=== PATIENT | female | born 1995 | race Caucasian/White ===

== ENCOUNTER 2017-11-24 11:15 | Emergency (ER) | payer SELFPAY ==
--- NOTE | 2017-11-24 13:47 | ER Document Report ---
ED Animal Bite - General Chief Complaint: Dog Bite Stated Complaint: DOG BITE/RIGHT HAND Time Seen by Provider: 11/24/17 13:40 Mode of Arrival: Ambulatory Information source: Patient TRAVEL OUTSIDE OF THE [place] IN LAST 30 DAYS: No - HPI Location of injury: RUE Severity of injury: Bitten Onset: Other - 3 DAYS AGO Where did incident occur: [facility] Quality of pain: Other - SORENESS Severity: Mild Context of attack: Animals fighting Summary of what happened: PATIENT TRIED TO BREAK UP FIGHT BETWEEN HER DOG AND ANOTHER, NOT SURE WHICH DOG BIT HER, MAYBE BOTH. Type of animal: Dog Appearance of animal: Appeared well Animal captured or known: Yes Animal control notified: Yes Animal control form completed: Yes - Related Data Allergies/Adverse Reactions: Sulfa (Sulfonamide Antibiotics) Allergy (Verified 11/24/17 11:17) Past Medical History - General Information source: Patient - Social History Smoking Status: Current Some Day Smoker Cigarette use (# per day): Yes Chew tobacco use (# tins/day): No Smoking Education Provided: No Frequency of alcohol use: Rare Drug Abuse: None Lives with: Spouse/Significant other Family History: Reviewed & Not Pertinent Patient has suicidal ideation: No Patient has homicidal ideation: No - Past Medical History Cardiac Medical History: Reports: None Pulmonary Medical History: Reports: None EENT Medical History: Reports: None Neurological Medical History: Reports: None Endocrine Medical History: Reports: None. Denies: Hx Diabetes Mellitus Type 1, Hx Diabetes Mellitus Type 2 Renal/ Medical History: Reports: None. Denies: Hx Peritoneal Dialysis Malignancy Medical History: Reports: None GI Medical History: Reports: None Musculoskeletal Medical History: Reports None Psychiatric Medical History: Reports: None Surgical Hx: Negative Review of Systems - Review of Systems Constitutional: No symptoms reported. denies: Chills, Fever EENT: No symptoms reported Cardiovascular: No symptoms reported Respiratory: No symptoms reported Gastrointestinal: No symptoms reported Musculoskeletal: No symptoms reported Skin: See HPI Neurological/Psychological: No symptoms reported Physical Exam - Vital signs Vitals: Pulse Resp BP Pulse Ox 67 16 112/60 99 11/24/17 11:23 11/24/17 11:23 11/24/17 11:23 11/24/17 11:23 Interpretation: Normal - General General appearance: Appears well, Alert In distress: None - HEENT Head: Normocephalic Eyes: Normal Conjunctiva: Normal Ears: Normal Nasal: Normal Mouth/Lips: Normal Mucous membranes: Normal - Respiratory Respiratory status: No respiratory distress Chest status: Nontender Breath sounds: Normal - Cardiovascular Rhythm: Regular - Abdominal Inspection: Normal Distension: No distension - Extremities General upper extremity: No: Normal inspection - R. HAND (SEE BELOW) General lower extremity: Normal inspection Hand: Laceration - 8 mm DORSUM OVER 2nd MC, TWO 5 mm LACSON PALMAR SURFACE. ONLY MILDLY TENDER, MINIMALLY RED & SWOLLEN. NO UNDUE PAIN W/ FINGER FLEXION/ EXTENSION Course - Vital Signs Vital signs: Temp Pulse Resp BP Pulse Ox 67 16 112/60 99 11/24/17 11:23 11/24/17 11:23 11/24/17 11:23 11/24/17 11:23 Discharge - Discharge Clinical Impression: Dog bite of hand Qualifiers: Encounter type: initial encounter Laterality: right Qualified Code(s): S61.451A - Open bite of right hand, initial encounter; W54.0XXA - Bitten by dog , initial encounter; W54.0XXA - Bitten by dog, initial encounter Condition: Stable Disposition: HOME, SELF-CARE Instructions: Tetanus Immunization Given ([facility]), Animal Bites ([facility]), Elevate the Injury ([facility]), Epsom Salt Soaks ([facility]), Augmentin ([facility]) Prescriptions: Amox Tr/Potassium Clavulanate [Augmentin 500-125 Tablet] 1 tab PO Q8 #20 tablet
[2017-11-24] MEDS ORDERED: DIPH/PERTUSS(ACELL)/TETANUS VAC/PF 0.5 ML SYR (>=10YO) IM ONE (14:11)
[2017-11-24 14:30] VITALS: BP 102/57
== END 2017-11-24 14:30 | disposition home or self-care (01) ==
LOC: ER 11:15
PROC: 3E0234Z Introduction of Serum, Toxoid and Vaccine into Muscle, Percutaneous Approach (ICD-10-PCS; principal; 2017-11-24)
DX: S61.451A Open bite of right hand, initial encounter (principal); W54.0XXA Bitten by dog, initial encounter; Y92.89 Other specified places as the place of occurrence of the external cause; F17.210 Nicotine dependence, cigarettes, uncomplicated; Z23 Encounter for immunization
CPT/HCPCS: 90471; 90715; 99283

== ENCOUNTER → 2018-05-27 | Outpatient (CLI) | payer MEDICAID ==
[2018-05-27 09:37] LABS: ALANINE AMINOTRANSFERASE 22 U/L (9-52); ALBUMIN 4.4 g/dL (3.5-5.0); ALKALINE PHOSPHATASE 55 U/L (38-126); ANION GAP 11 (5-19); ASPARTATE AMINO TRANSFERASE 23 U/L (14-36); BILIRUBIN,DIRECT 0.2 mg/dL (0.0-0.4); BILIRUBIN,TOTAL 0.8 mg/dL (0.2-1.3); BLOOD UREA NITROGEN 17 mg/dL (7-20); CALCIUM 9.8 mg/dL (8.4-10.2); CARBON DIOXIDE 26 mmol/L (22-30); CHLORIDE 103 mmol/L (98-107); GLUCOSE 89 mg/dL (75-110); POTASSIUM 4.4 mmol/L (3.6-5.0); SODIUM 140.3 mmol/L (137-145); TOTAL PROTEIN 7.6 g/dL (6.3-8.2); TRIGLYCERIDES 68 mg/dL (<150)
[2018-05-27 09:49] LABS: DIRECT LDL 86 mg/dL (<100)
== END ==
LOC: LAB 08:48
PROVIDERS: ATTEND Internal Medicine Cardiovascular Disease
DX: I95.1 Orthostatic hypotension (principal); R00.0 Tachycardia, unspecified; R07.9 Chest pain, unspecified
CPT/HCPCS: 36415; 80048; 80061; 80076; 83735; 84443

== ENCOUNTER → 2019-03-30 | Outpatient (CLI) | payer BC ==
[2019-03-30 13:43] LABS: A TYPE INFLUENZA AG NEGATIVE (NEGATIVE); B INFLUENZA AG NEGATIVE (NEGATIVE)
== END ==
LOC: OD 12:58
PROVIDERS: ATTEND Physician Assistant
DX: B34.9 Viral infection, unspecified (principal)
CPT/HCPCS: 87804

== ENCOUNTER 2020-02-28 21:48 | Emergency (ER) | payer BC, OTHER ==
--- NOTE | 2020-02-28 23:08 | ER Document Report ---
ED Medical Screen (RME) - General Chief Complaint: Medical Complaint Stated Complaint: SEVERE LOW BACK PAIN, BURNING WHEN PEEING Time Seen by Provider: 02/28/20 23:06 Primary Care Provider: EARL WITT PA-C [Primary Care Provider] - Follow up as needed Mode of Arrival: Ambulatory Information source: Patient Notes: 24-year-old female presents to ED for multiple complaints. She states since Thursday she has had back pain nausea fever and painful urination. She states her boyfriend was diagnosed with CORY on Thursday he was treated on Thursday with azithromycin and Rocephin. She states that she was treated yesterday with azithromycin and Rocephin and when she went to be seen they did get a urine at the time but they accidentally threw it away so she went back in today this evening when she developed painful urination and debris collected her urine but this was later in the day. She states she does smoke 1 cigarette a week and drinks a couple times a week. She does have a history of POTS and inappropriate sinus tachycardia. Patient is alert oriented respirations regular nonlabored at this time. She states she did have a fever up to 100.1 but nothing higher than that. She has not vomited. We will get blood urine and she will be seen by another provider. I have greeted and performed a rapid initial assessment of this patient. A comprehensive ED assessment and evaluation of the patient, analysis of test results and completion of medical decision making process will be conducted by an additional ED providers. TRAVEL OUTSIDE OF THE [place] IN LAST 30 DAYS: No - Related Data Allergies/Adverse Reactions: Sulfa (Sulfonamide Antibiotics) Allergy (Verified 11/24/17 11:17) Past Medical History Endocrine Medical History: Denies: Hx Diabetes Mellitus Type 1, Hx Diabetes Mellitus Type 2 Renal/ Medical History: Denies: Hx Peritoneal Dialysis Physical Exam - Vital signs Vitals: Temp Pulse Resp BP Pulse Ox 99.0 F 84 20 132/60 H 97 02/28/20 21:51 02/28/20 21:51 02/28/20 21:51 02/28/20 21:51 02/28/20 21:51 Course - Vital Signs Vital signs: Temp Pulse Resp BP Pulse Ox 99.0 F 84 20 132/60 H 97 02/28/20 21:51 02/28/20 21:51 02/28/20 21:51 02/28/20 21:51 02/28/20 21:51 Doctor's Discharge - Discharge Referrals: EARL WITT PAFayeC [Primary Care Provider] - Follow up as needed
[2020-02-28 23:28] LABS: ABSOLUTE MONOCYTES (AUTO) 0.6 10^3/uL (0.1-1.4); ABSOLUTE NEUT (AUTO) 2.4 10^3/uL (1.7-8.2); BASOPHILS % (AUTO) 0.3 % (0-2); EOSINOPHILS % (AUTO) 0.3 % (0-6); HEMATOCRIT 41.1 % (36.0-47.0); LYMPHOCYTES % (AUTO) 25.3 % (13-45); MEAN CORPUSCULAR HEMOGLOBIN 31.2 pg (27.0-33.4); MEAN CORPUSCULAR HGB CONC 34.2 g/dL (32.0-36.0); MEAN CORPUSCULAR VOLUME 91 fl (80-97); MONOCYTES % (AUTO) 14.9 % (3-13); PLATELET COUNT 221 10^3/uL (150-450); RED CELL DISTRIBUTION WIDTH 12.5 % (11.5-14.0); SEGMENTED NEUTROPHILS % (AUTO) 59.2 % (42-78); TOTAL CELLS COUNTED % (AUTO) 100 %; WHITE BLOOD COUNT 4.1 10^3/uL (4.0-10.5)
[2020-02-28 23:35] LABS: APPEARANCE,URINE SLIGHTLY-CLOUDY; BILIRUBIN,URINE NEGATIVE (NEGATIVE); COLOR,URINE YELLOW; GLUCOSE, URINE NEGATIVE (NEGATIVE); KETONES,URINE NEGATIVE (NEGATIVE); LEUKOCYTE ESTERASE,URINE MODERATE (NEGATIVE); NITRITE,URINE NEGATIVE (NEGATIVE); PROTEIN,URINE NEGATIVE (NEGATIVE); URINE SPECIFIC GRAVITY 1.011; UROBILINOGEN,URINE NEGATIVE mg/dL (<2.0)
[2020-02-29 00:35] LABS: ALBUMIN 4.7 g/dL (3.5-5.0); ALKALINE PHOSPHATASE 60 U/L (38-126); ANION GAP 9 (5-19); ASPARTATE AMINO TRANSFERASE 24 U/L (14-36); BILIRUBIN,DIRECT 0.1 mg/dL (0.0-0.4); BILIRUBIN,TOTAL 0.3 mg/dL (0.2-1.3); BLOOD UREA NITROGEN 5 mg/dL (7-20); CALCIUM 9.5 mg/dL (8.4-10.2); CARBON DIOXIDE 27 mmol/L (22-30); CHLORIDE 101 mmol/L (98-107); GLUCOSE 96 mg/dL (75-110); POTASSIUM 4.1 mmol/L (3.6-5.0); TOTAL PROTEIN 8.2 g/dL (6.3-8.2)
[2020-02-29] MEDS ORDERED: CEPHALEXIN 500 MG CAPSULE PO ONE (01:24)
--- NOTE | 2020-02-29 01:40 | ER Document Report ---
ED General - General Chief Complaint: Medical Complaint Stated Complaint: SEVERE LOW BACK PAIN, BURNING WHEN PEEING Time Seen by Provider: 02/28/20 23:06 Primary Care Provider: EARL WITT PA-C [Primary Care Provider] - Follow up as needed Mode of Arrival: Ambulatory Notes: 24 year old female is here with thoughts that she has a uti. Urinary frequency and urgency and dysuria. Also low back pain bilaterally - which she assures me is something she has had "almost my whole life." She has h/o distant tailbone fx and riding horses for years. Also has POTS. No dizziness or syncope recently. She was treated yesterday for sti with rocephin and zithromax due to boyfriend having cristina diagnosed in the last few days. No covid exposure that she is aware of. TRAVEL OUTSIDE OF THE [place] IN LAST 30 DAYS: No - HPI Onset/Duration: Gradual Severity: Moderate Pain Level: 2 Associated symptoms: None Exacerbated by: Denies - Related Data Allergies/Adverse Reactions: Sulfa (Sulfonamide Antibiotics) Allergy (Verified 11/24/17 11:17) Home Medications: zoloft, Past Medical History - General Information source: Patient - Social History Smoking Status: Current Some Day Smoker Family History: Reviewed & Not Pertinent Endocrine Medical History: Denies: Hx Diabetes Mellitus Type 1, Hx Diabetes Shelly itus Type 2 Renal/ Medical History: Denies: Hx Peritoneal Dialysis Review of Systems - Review of Systems Constitutional: No symptoms reported EENT: No symptoms reported Cardiovascular: No symptoms reported Respiratory: No symptoms reported Gastrointestinal: No symptoms reported Genitourinary: See HPI, Burning, Dysuria, Frequency. denies: Discharge Female Genitourinary: No symptoms reported Musculoskeletal: See HPI, Back pain Skin: No symptoms reported Hematologic/Lymphatic: No symptoms reported Neurological/Psychological: No symptoms reported Physical Exam - Vital signs Vitals: Temp Pulse Resp BP Pulse Ox 99.0 F 84 20 132/60 H 97 02/28/20 21:51 02/28/20 21:51 02/28/20 21:51 02/28/20 21:51 02/28/20 21:51 Interpretation: Normal - General General appearance: Appears well, Alert - HEENT Head: Normocephalic, Atraumatic Eyes: Normal Pupils: PERRL - Respiratory Respiratory status: No respiratory distress Chest status: Nontender Breath sounds: Normal Chest palpation: Normal - Cardiovascular Rhythm: Regular Heart sounds: Normal auscultation Murmur: No - Abdominal Inspection: Normal Distension: No distension Bowel sounds: Normal Tenderness: Nontender Organomegaly: No organomegaly - Back Back: Normal, Tender - ttp paraspinally with no midline pain.. No: Nontender - Extremities General upper extremity: Normal inspection, Nontender, Normal color, Normal ROM, Normal temperature General lower extremity: Normal inspection, Nontender, Normal color, Normal ROM, Normal temperature, Normal weight bearing. No: Colt's sign - Neurological Neuro grossly intact: Yes Cognition: Normal Orientation: AAOx4 [place] Coma Scale Eye Opening: Spontaneous Venancio Coma Scale Verbal: Oriented Venancio Coma Scale Motor: Obeys Commands [place] Coma Scale Total: 15 Speech: Normal Motor strength normal: LUE, RUE, LLE, RLE Sensory: Normal - Psychological Associated symptoms: Normal affect, Normal mood - Skin Skin Temperature: Warm Skin Moisture: Dry Skin Color: Normal Course - Re-evaluation Re-evalutation: 02/29/20 01:39 MDM 24 year old female with uti. She is nontoxic here. We discussed follow up and she expressed understanding. - Vital Signs Vital signs: Temp Pulse Resp BP Pulse Ox 99.0 F 84 20 132/60 H 97 02/28/20 21:51 02/28/20 21:51 02/28/20 21:51 02/28/20 21:51 02/28/20 21:51 - Laboratory Results Result Diagrams: 02/28/20 23:16 02/28/20 23:16 Laboratory Results Interpreted: 02/28/20 02/28/20 02/28/20 23:16 23:16 23:16 [place] % (Auto) 14.9 H Sodium 136.7 L BUN 5 L Ur Leukocyte Esterase MODERATE H Critical Laboratory Results Reviewed: No Critical Results - Radiology Results Critical Radiology Results Reviewed: No Critical Results Discharge - Discharge Clinical Impression: UTI (urinary tract infection) Qualifiers: Urinary tract infection type: site unspecified Hematuria presence: with hematuria Qualified Code(s): N39.0 - Urinary tract infection, site not specified Condition: Stable Disposition: HOME, SELF-CARE Instructions: Cephalexin ([facility]), Urinary Anesthetic Agent ([facility]) Additional Instructions: Rest, plenty of fluids. See your doctor in follow up. Take tylenol or ibuprofen for the back pain. Return here for abdominal pain, fever, persistent vomiting or other problems or other concerns. Finish the antibiotic. Medicine was sent to [facility] on [address]. Prescriptions: Cephalexin Monohydrate [Keflex 500 mg Capsule] 500 mg PO TID #30 capsule Cephalexin Monohydrate [Keflex 500 mg Capsule] 500 mg PO TID #30 capsule Referrals: EARL WITT PA-C [Primary Care Provider] - Follow up as needed
[2020-02-29 01:55] VITALS: BP 128/76
== END 2020-02-29 01:54 | disposition home or self-care (01) ==
LOC: ER 21:48
DX: N39.0 Urinary tract infection, site not specified (principal); M54.5 Low back pain; R30.0 Dysuria; F17.200 Nicotine dependence, unspecified, uncomplicated; Z87.440 Personal history of urinary (tract) infections
CPT/HCPCS: 36415; 80053; 81001; 84702; 85025; 87086; 99283